=== PATIENT | male | born 2000 | race Caucasian/White ===

== ENCOUNTER 2022-05-10 10:30 | Day surgery (SDC) | payer OTHER, SELFPAY ==
[2022-05-10] VITALS (11 sets, daily range): BP systolic 104–123; BP diastolic 51–74; PULSE 40–60; RESP 16; TEMP 36.4–37; O2SAT 96–99; BMI 23.4
[2022-05-10] MEDS: OXYMETAZOLINE 0.05% NASAL SPRAY 2 SPRAY NOSTRIL-B (10:45)
[2022-05-10] MEDS: LACTATED RINGERS 1000 ML 1,000 ML 100 ML IV (11:11)
[2022-05-10] MEDS: OXYMETAZOLINE (AFRIN) SOAK 1 EACH TOPICAL (11:15)
--- NOTE | 2022-05-10 11:37 | W.PM.ENTPROC ---
Procedure Note Date of procedure: 05/10/22 Procedure: preop diagnosis is depressed right nasal fracture Postoperative diagnosis same Procedure closed reduction nasal fracture Under general endotracheal anesthesia the patient was prepped in the usual fashion. The nose was decongested with Afrin pledgets on the right side. The fracture was palpated marked externally with the fracture elevator. The fracture elevator was inserted to through the right nostril and the fracture elevated. The bone seemed to is click back into good position. An external dressing of benzoin and Steri tape was applied. The patient tolerated the procedure well. Blood loss was 0 mL is Surgeon: Yonatan Gay MD
--- NOTE | 2022-05-10 11:49 | W.ANESCHARGE ---
Anesthesia Charges Start Date/Time Anesthesia Start Date: 05/10/22 Anesthesia Start Time: 11:26 Stop Date/Time Anesthesia Stop Date: 05/10/22 Anesthesia Stop Time: 11:47 Summary Emergency: No
--- NOTE | 2022-05-10 11:55 | W.ANESCHARGE ---
Anesthesia Charges Start Date/Time Anesthesia Start Date: 05/10/22 Anesthesia Start Time: 11:26 Stop Date/Time Anesthesia Stop Date: 05/10/22 Anesthesia Stop Time: 11:47 Summary Emergency: No
[2022-05-10] MEDS: IBUPROFEN 200 MG TABLET PO (12:38)
[2022-05-10] MEDS: ACETAMINOPHEN 325 MG TABLET PO (12:38)
== END 2022-05-10 13:00 | disposition home or self-care (01) ==
PROVIDERS: PCP Family Medicine; Visit Provider Otolaryngology
PROC: 0NSBXZZ Reposition Nasal Bone, External Approach (ICD-10-PCS; CPT 21320; principal; 2022-05-10 12:15)
DX: S02.2XXA Fracture of nasal bones, initial encounter for closed fracture (principal)
CPT/HCPCS: 21320; 00160; A9270; J2250; J3010; J7120